=== PATIENT | female | born 1960 | race Caucasian/White ===

== ENCOUNTER 2017-03-08 13:50 | Observation (INO) | payer BC ==
[~2017-03-08] VITALS: Ht 154.9 cm; Wt 71.0 kg
[2017-03-08 14:47] LABS: HEMATOCRIT 50.4 % (36.0-46.0); MCH 30.1 PG (29.0-34.0); MCHC 33.7 G/DL (30.0-36.0); MCV 89.2 FL (83-99); MEAN PLAT.VOLUME 9.4 uM^3 (9.5-12.4); PLATELET COUNT 248 K/uL (156-360); RBC DIS.WIDTH-CV 11.9 % (11.8-14.6); RBC DIS.WIDTH-SD 39.1 % (39-53); RED BLOOD COUNT 5.65 M/uL (3.80-5.20); WHITE BLOOD COUNT 7.8 K/uL (4.1-10.2)
[2017-03-08 14:56] LABS: CHLORIDE 102 mEq/L (99-109); POTASSIUM 3.7 mEq/L (3.7-5.4); SODIUM 141 mEq/L (136-147)
[2017-03-08 14:57] LABS: GLUCOSE 105 mg/dL (70-99)
[2017-03-08 14:59] LABS: ANION GAP 16 MEQ/L (2-14)
[2017-03-08 15:01] LABS: GFR ESTIMATE (CALCULATED) > 59 mL/min/
[2017-03-08 15:02] LABS: UREA NITROGEN (BUN) 15 mg/dL (9-23)
[2017-03-08 15:08] LABS: TROP-I INTERPRETATION NEGATIVE; TROPONIN-I < 0.01 ng/mL (0.0-0.30)
[2017-03-08 15:49] LABS: D-DIMER ELISA 0.23 mg/L FEU (< 0.57)
[2017-03-08] MEDS ORDERED: ERGOCALCIF50000 UNIT PO (16:30)
[2017-03-08] MEDS ORDERED: MAGNESIUM250 MG PO (16:31)
[2017-03-08] MEDS ORDERED: CALTRATE 600 +1 EAC1 PO (16:32)
[2017-03-08] MEDS ORDERED: SYSTANE BALANCE10 ML BOTH EYES (16:32)
[2017-03-08 19:44] LABS: TOTAL BILIRUBIN 0.8 mg/dL (0.0-1.0)
[2017-03-08 19:45] LABS: ALKALINE PHOSPHATASE 78 IU/L (3-129)
[2017-03-08 19:47] LABS: DIRECT BILIRUBIN 0.2 mg/dL (0.0-0.3)
[2017-03-08 19:48] LABS: LIPASE 35 U/L (1.0-51.0)
[2017-03-08 20:08] VITALS: BP 132/88
[2017-03-08 21:27] LABS: TROP-I INTERPRETATION NEGATIVE; TROPONIN-I < 0.01 ng/mL (0.0-0.30)
[2017-03-09 00:53] VITALS: BP 109/69
[2017-03-09 03:34] LABS: TROP-I INTERPRETATION NEGATIVE; TROPONIN-I < 0.01 ng/mL (0.0-0.30)
[2017-03-09 04:43] VITALS: BP 109/74
[2017-03-09 07:16] VITALS: BP 104/75
[2017-03-09 11:14] LABS: HEMATOCRIT 45.5 % (36.0-46.0); MCH 30.2 PG (29.0-34.0); MCHC 34.1 G/DL (30.0-36.0); MCV 88.7 FL (83-99); MEAN PLAT.VOLUME 9.3 uM^3 (9.5-12.4); PLATELET COUNT 252 K/uL (156-360); RBC DIS.WIDTH-CV 11.9 % (11.8-14.6); RBC DIS.WIDTH-SD 38.8 % (39-53); RED BLOOD COUNT 5.13 M/uL (3.80-5.20); WHITE BLOOD COUNT 5.8 K/uL (4.1-10.2)
[2017-03-09 11:25] VITALS: BP 150/72
[2017-03-09 15:26] VITALS: BP 138/77
[2017-03-09] MEDS ORDERED: ASPIR-LOW81 MG PO ×2 (15:44→15:59)
== END 2017-03-09 16:15 | disposition home or self-care (01) ==
LOC: EME 13:50 → EDOF 18:24 → 5WEST 18:24
PROVIDERS: Hospitalist; Nurse Practitioner Adult Health
DX: R07.89 Other chest pain (principal); Z85.3 Personal history of malignant neoplasm of breast; E78.5 Hyperlipidemia, unspecified; Z86.711 Personal history of pulmonary embolism; I25.2 Old myocardial infarction; G43.909 Migraine, unspecified, not intractable, without status migrainosus; F32.9 Major depressive disorder, single episode, unspecified; Z86.718 Personal history of other venous thrombosis and embolism; R42 Dizziness and giddiness; Z90.11 Acquired absence of right breast and nipple; F41.9 Anxiety disorder, unspecified; D75.1 Secondary polycythemia; R73.09 Other abnormal glucose
CPT/HCPCS: 71020; 71275; 80048; 80076; 83690; 84443; 84484; 85027; 85379; 93005; 99281; 99285; G0378